=== PATIENT | male | born 1990 | race Caucasian/White ===

== ENCOUNTER 2019-03-01 15:00 | Emergency (ER) | payer MEDICAID, OTHER ==
[~2019-03-01] VITALS: Ht 185.4 cm; Wt 81.8 kg
[~2019-03-01 15:00] MED LIST: AMOX500C2 PO; PAX20T PO; RIS2T PO
[2019-03-01] MEDS ORDERED: normal saline 1000ML IV soln IVB ONE (15:30)
[2019-03-01] MEDS ORDERED: piperacillin/tazo 3.375gm/50ml 50 ML IV ONE (15:30)
[2019-03-01] MEDS ORDERED: vancomycin/NS 1 GM ADD-VANTAGE 250 ML IV ONE (15:30)
[2019-03-01] MEDS ORDERED: iohexol 300mg/ml 100ml inj. ONE (15:38)
--- NOTE | 2019-03-01 15:45 | NUR ---
PT UNABLE TO VOID FOR UA, PT NOT AGREABLE TO STRAIGHT CATH.
[2019-03-01 15:49] LABS: BASOPHILS # (AUTO) 0.1 X10'3 (0-0.2); BASOPHILS % (AUTO) 0.5 % (0-1); EOSINOPHILS # (AUTO) 0.2 X10'3 (0-0.9); EOSINOPHILS % (AUTO) 1.3 % (0-6); HEMOGLOBIN 13.1 g/dl (14.0-17.9); LYMPHOCYTES % (AUTO) 8.2 % (21-51); MEAN CORPUSCULAR HEMOGLOBIN 28.9 PG (27.0-31.0); MEAN CORPUSCULAR HGB CONC 33.6 g/dL (33.0-36.5); MEAN PLATELET VOLUME 8.1 FL (7.4-10.4); MONOCYTES # (AUTO) 1.2 X10'3 (0-0.9); MONOCYTES % (AUTO) 9.4 % (2-12); NEUTROPHILS # (AUTO) 9.9 X10'3 (1.8-7.7); NEUTROPHILS % (AUTO) 80.6 % (42-75); PLATELET COUNT 236 X10'3 (140-440); RED BLOOD COUNT 4.53 X10'6 (4.70-6.10); RED CELL DISTRIBUTION WIDTH 12.9 % (11.5-14.5); WHITE BLOOD COUNT 12.2 X10'3 (4.5-11.0)
--- NOTE | 2019-03-01 16:05 | NUR ---
PT RETURNED FROM CT.
[2019-03-01 16:06] LABS: ALANINE AMINOTRANSFERASE 15 U/L (12-78); ALBUMIN 3.4 G/DL (3.4-5.0); ALBUMIN/GLOBULIN RATIO 0.8 (1.1-1.5); ALKALINE PHOSPHATASE 88 IU/L (46-116); ANION GAP 10 (8-16); ASPARTATE AMINO TRANSFERASE 13 U/L (10-37); BILIRUBIN,TOTAL 0.8 MG/DL (0.1-1.0); BLOOD UREA NITROGEN 8 MG/DL (7-18); BUN/CREATININE RATIO 8.9 (5.4-32.0); CALCIUM 9.1 MG/DL (8.5-10.1); CHLORIDE 103 MMOL/L (99-107); GLUCOSE 108 MG/DL (70-104); POTASSIUM 3.3 MMOL/L (3.5-5.1); SODIUM 136 MMOL/L (135-145); TOTAL CARBON DIOXIDE 23.5 MMOL/L (24-32); TOTAL PROTEIN 7.6 G/DL (6.4-8.2); eGFR > 90 ML/MIN
[2019-03-01 16:10] LABS: PARTIAL THROMBOPLASTIN TIME 33 SECONDS (22-32)
--- NOTE | 2019-03-01 16:10 | NUR ---
RT AT BEDSIDE FOR ABG.
[2019-03-01 16:11] LABS: ETHANOL < 0.010 GM/DL (0.0-0.010); MAGNESIUM 1.4 MG/DL (1.5-2.4)
[2019-03-01 16:13] LABS: ACETAMINOPHEN < 2.0 UG/ML (10-30)
[2019-03-01 16:45] LABS: CLARITY,URINE CLEAR (Clear); COLOR,URINE YELLOW (Yellow); GLUCOSE, URINE NEGATIVE (Neg); KETONES,URINE NEGATIVE (Neg); LEUKOCYTE ESTERASE ,URINE NEGATIVE (Neg); NITRITES, URINE NEGATIVE (Neg); OCCULT BLOOD,URINE TRACE-LYSED (Neg); PH,URINE 5.5 (4.8-8.0); PROTEIN,URINE NEGATIVE (Neg); UROBILINOGEN,URINE 0.2 E.U/dL (0.2-1.0)
[2019-03-01 16:45] LABS: ABG BASE EXCESS -3.1 mmol/L (-2.0-3.0); ABG HCO3 20.9 mmol/L (22.0-26.0); ABG OXYGEN SATURATION 97.1 % (95-98); ABG PCO2 (T) 34.1 mmHg (35.0-48.0); ABG PH (T) 7.405 (7.350-7.450); ABG PO2 (T) 93.6 mmHg (83-108); ALLEN'S TEST Positive; FCOHb 0.4 % (0.5-1.5); FMetHb 0.2 % (0.3-1.12); FO2Hb 96.5 % (94-100); TOTAL HEMOGLOBIN 13.1 G/dl (14.0-18.0)
[2019-03-01 16:46] LABS: UA COLLECTION TYPE URINAL
[2019-03-01 16:52] LABS: BACTERIA,URINE FEW /HPF (Neg); RBC,URINE 0-2 /HPF (0-2)
[2019-03-01 16:53] LABS: HYALINE CASTS 0-3 /LPF (NEGATIVE); MUCUS STRANDS FEW /LPF (Neg); SQUAMOUS EPITHELIAL CELL,UR FEW /LPF (FEW); WBC CASTS 0-3 /LPF (NEGATIVE); WBC CLUMPS,URINE FEW /HPF (NEGATIVE)
[2019-03-01 17:00] LABS: URINE AMPHETAMINE SCREEN POSITIVE (Neg); URINE BARBITUATE SCREEN NEGATIVE (Neg); URINE BENZODIAZEPINES SCREEN NEGATIVE (Neg); URINE CANNABINOID SCREEN POSITIVE (Neg); URINE COCAINE SCREEN NEGATIVE (Neg); URINE METHADONE SCREEN NEGATIVE (Neg); URINE OPIATE SCREEN NEGATIVE (Neg); URINE PHENCYCLIDINE SCREEN NEGATIVE (Neg)
[2019-03-01] MEDS ORDERED: AMOX-422 PO (17:34)
[2019-03-01] MEDS ORDERED: SULF1TAB49 PO (17:34)
[2019-03-01 18:24] VITALS: BP 137/86
== END 2019-03-01 18:26 | disposition home or self-care (01) ==
LOC: ER 15:00
DX: L03.211 Cellulitis of face (principal); K04.7 Periapical abscess without sinus; F15.10 Other stimulant abuse, uncomplicated; F12.90 Cannabis use, unspecified, uncomplicated; J45.909 Unspecified asthma, uncomplicated; G89.29 Other chronic pain; Z90.89 Acquired absence of other organs; Z79.899 Other long term (current) drug therapy
CPT/HCPCS: 36415; 36600; 70450; 70487; 71045; 80053; 80305; 80320; 80329; 81001; 82803; 82948; 83605; 83735; 84145; 84443; 85018; 85025; 85610; 85730; 87040; 87088; 96365; 96366; 96368; 99284; J2543; J3370; Q9967

== ENCOUNTER 2019-09-06 15:15 | Emergency (ER) | payer MEDICAID ==
[~2019-09-06] VITALS: Ht 185.4 cm; Wt 84.0 kg
[2019-09-06 16:33] LABS: BASOPHILS # (AUTO) 0.1 X10'3 (0-0.2); BASOPHILS % (AUTO) 0.6 % (0-1); EOSINOPHILS # (AUTO) 0.3 X10'3 (0-0.9); HEMATOCRIT 44.8 % (42.0-52.0); HEMOGLOBIN 14.8 g/dl (14.0-17.9); LYMPHOCYTES # (AUTO) 1.9 X10'3 (1.1-4.8); LYMPHOCYTES % (AUTO) 14.6 % (21-51); MEAN CORPUSCULAR HGB CONC 32.9 g/dL (33.0-36.5); MEAN PLATELET VOLUME 7.7 FL (7.4-10.4); MONOCYTES # (AUTO) 0.8 X10'3 (0-0.9); NEUTROPHILS # (AUTO) 10.1 X10'3 (1.8-7.7); NEUTROPHILS % (AUTO) 76.8 % (42-75); PLATELET COUNT 312 X10'3 (140-440); RED BLOOD COUNT 5.09 X10'6 (4.70-6.10); RED CELL DISTRIBUTION WIDTH 13.9 % (11.5-14.5); WHITE BLOOD COUNT 13.2 X10'3 (4.5-11.0)
--- NOTE | 2019-09-06 16:44 | NUR ---
relieving RN for lunch, pt is lying quietly on gurney, friend at bedside, pt c/o n/v x2 days "I ate hotdogs and chili yesterday and started vomiting", pt also said he stopped using meth yesterday, waiting to be evaluated
[2019-09-06 16:45] LABS: ALANINE AMINOTRANSFERASE 27 U/L (12-78); ALBUMIN 4.1 G/DL (3.4-5.0); ALBUMIN/GLOBULIN RATIO 0.8 (1.1-1.5); ALKALINE PHOSPHATASE 129 IU/L (46-116); ANION GAP 8 (8-16); ASPARTATE AMINO TRANSFERASE 24 U/L (10-37); BILIRUBIN,TOTAL 0.7 MG/DL (0.1-1.0); BLOOD UREA NITROGEN 15 MG/DL (7-18); BUN/CREATININE RATIO 14.3 (5.4-32.0); CALCIUM 9.7 MG/DL (8.5-10.1); CHLORIDE 104 MMOL/L (99-107); CREATININE 1.05 MG/DL (0.60-1.10); GLUCOSE 105 MG/DL (70-104); LIPASE 176 U/L (73-393); POTASSIUM 3.7 MMOL/L (3.5-5.1); SODIUM 143 MMOL/L (135-145); eGFR 83 ML/MIN
--- NOTE | 2019-09-06 17:40 | NUR ---
pt drinking water and juice, and eating candy etc with his girl friend
[2019-09-06] MEDS ORDERED: dicyclomine 10 MG capsule PO ONE (18:00)
[2019-09-06] MEDS ORDERED: normal saline 1000ML IV soln IVB ONE (18:00)
[2019-09-06] MEDS ORDERED: mag hydrox/Alum hydrox/simeth 30ml oral suspension PO ONE (18:00)
[2019-09-06] MEDS ORDERED: diphenhydrAMINE 25mg capsule PO ONE (18:00)
--- NOTE | 2019-09-06 18:38 | NUR ---
pt refused IV and IV fluids, he and his gf state that he has drank a liter of fluids since he has been here and held them down, I explained the reason for need of fluids being his tachacardia, he states that he usually has a fast heart rate and that he did meth recently, i let provider Sergo know
[2019-09-06] MEDS ORDERED: DICY10CA88 PO (18:50)
[2019-09-06] MEDS ORDERED: ONDA4TAB6 PO (18:50)
--- NOTE | 2019-09-06 18:56 | NUR ---
provider aware pt refused to give urine
[2019-09-06 18:57] VITALS: BP 103/59
== END 2019-09-06 19:02 | disposition home or self-care (01) ==
LOC: ER 15:16
DX: R10.9 Unspecified abdominal pain (principal); R07.89 Other chest pain; F15.10 Other stimulant abuse, uncomplicated; J45.909 Unspecified asthma, uncomplicated; M19.90 Unspecified osteoarthritis, unspecified site; G89.29 Other chronic pain; F32.9 Major depressive disorder, single episode, unspecified; F12.90 Cannabis use, unspecified, uncomplicated; Z98.890 Other specified postprocedural states; Z79.2 Long term (current) use of antibiotics; Z79.899 Other long term (current) drug therapy
CPT/HCPCS: 36415; 80053; 83690; 85025; 99284; Q0163